=== PATIENT | female | born 1960 | race African-American/Black ===

== ENCOUNTER 2019-08-24 14:09 | Emergency (ER) | payer MEDICAID, OTHER ==
[~2019-08-24] VITALS: Ht 162.6 cm; Wt 60.0 kg
[2019-08-24] MEDS ORDERED: ARIPIPRAZOLE 10MG TABLET PO ONE (14:45)
[2019-08-24] MEDS ORDERED: HYDROCODONE/ACETAMINOPHEN 5/325MG TABLET PO ONE (14:45)
[2019-08-24 14:51] VITALS: BP 131/68
[2019-08-24] MEDS ORDERED: ARIPIPRAZOLE 5MG TABLET PO NR (15:00)
== END 2019-08-24 15:33 | disposition home or self-care (01) ==
LOC: ER 14:22
DX: M79.662 Pain in left lower leg (principal); Z59.0 Homelessness
CPT/HCPCS: 99283

== ENCOUNTER 2019-08-25 06:37 | Emergency (ER) | payer MEDICAID, OTHER ==
[~2019-08-25] VITALS: Ht 165.1 cm; Wt 71.0 kg
[2019-08-25 07:30] LABS: CLARITY URINE CLEAR (CLEAR); COLOR URINE YELLOW (YELLOW); KETONES URINE NEGATIVE (NEGATIVE); LEUKOCYTE ESTERASE URINE TRACE (NEGATIVE); NITRITE URINE NEGATIVE (NEGATIVE); OCCULT BLOOD URINE NEGATIVE (NEGATIVE); PH URINE 5.5 (4.5-8.0); PROTEIN URINE NEGATIVE (NEGATIVE); SPECIFIC GRAVITY URINE 1.006 (1.005-1.030)
[2019-08-25] MEDS ORDERED: IBUPROFEN 400MG TABLET PO ONE (07:45)
[2019-08-25] MEDS ORDERED: KETOROLAC 60MG/2ML VIAL IM ONE (07:45)
[2019-08-25 07:52] VITALS: BP 124/92
== END 2019-08-25 18:19 | disposition home or self-care (01) ==
LOC: ER 06:37
DX: G89.29 Other chronic pain (principal); M54.5 Low back pain; Z88.0 Allergy status to penicillin
CPT/HCPCS: 81003; 96372; 99283; J1885

== ENCOUNTER 2019-08-25 19:13 | Emergency (ER) | payer MEDICAID, OTHER ==
[~2019-08-25] VITALS: Ht 170.2 cm; Wt 76.0 kg
[2019-08-25] MEDS ORDERED: HYDROCODONE/ACETAMINOPHEN 5/325MG TABLET PO ONE (20:30)
[2019-08-25 21:35] VITALS: BP 119/89
== END 2019-08-25 21:55 | disposition home or self-care (01) ==
LOC: ER 19:13
DX: G89.29 Other chronic pain (principal); M79.662 Pain in left lower leg; F31.9 Bipolar disorder, unspecified; D64.9 Anemia, unspecified; F17.200 Nicotine dependence, unspecified, uncomplicated; Z88.0 Allergy status to penicillin
CPT/HCPCS: 99283

== ENCOUNTER 2019-08-26 02:11 | Emergency (ER) | payer MEDICAID, OTHER ==
[~2019-08-26] VITALS: Ht 167.6 cm; Wt 73.0 kg
[2019-08-26] MEDS ORDERED: ARIPIPRAZOLE 10MG TABLET PO ONE (03:45)
[2019-08-26] MEDS ORDERED: ACETAMINOPHEN 500MG TABLET PO ONE (12:30)
[2019-08-27] MEDS ORDERED: ACETAMINOPHEN 500MG TABLET PO ONE (05:30)
[2019-08-27] MEDS ORDERED: ACETAMINOPHEN 325MG TABLET PO STA (09:43)
[2019-08-27] MEDS ORDERED: ARIPIPRAZOLE 5MG TABLET PO ONE (16:30)
[2019-08-27] MEDS ORDERED: ARIPIPRAZOLE 2MG TABLET PO NR (16:45)
[2019-08-27 17:06] VITALS: BP 131/91
== END 2019-08-27 17:01 | disposition home or self-care (01) ==
LOC: ER 02:11
DX: F31.9 Bipolar disorder, unspecified (principal); F17.200 Nicotine dependence, unspecified, uncomplicated; Z59.0 Homelessness; Z88.0 Allergy status to penicillin
CPT/HCPCS: 99284

== ENCOUNTER 2019-10-06 01:00 | Emergency (ER) | payer MEDICAID, OTHER ==
[~2019-10-06] VITALS: Ht 175.3 cm; Wt 71.0 kg
[2019-10-06] MEDS ORDERED: PROCHLORPERAZINE MALEATE 10MG TABLET PO ONE (01:30)
[2019-10-06 01:42] LABS: BASOPHILS % 0.7 % (0.0-2.0); EOSINOPHILS % 0.7 % (0.0-5.0); HEMATOCRIT. 41.4 % (36.0-48.0); HEMOGLOBIN. 14.2 g/dL (12.0-16.0); LYMPHOCYTES % 29.9 % (20.0-50.0); MEAN CORPUSCULAR HEMOGLOBIN 30.4 pg (28.0-32.0); MEAN CORPUSCULAR VOLUME 88.4 fL (81.0-99.0); MEAN PLATELET VOLUME 7.7 fl (7.4-10.4); MONOCYTES % 8.3 % (2.0-8.0); NEUTROPHILS % 60.4 % (40.0-76.0); PLATELET 417 x1000/uL (130-400); RED BLOOD CELL COUNT 4.68 mill/uL (4.2-5.4); RED CELL DISTRIBUTION WIDTH 13.1 % (11.6-14.6)
[2019-10-06 01:52] LABS: CHLORIDE 107 mEq/L (98-107)
[2019-10-06] MEDS ORDERED: POTASSIUM CHLORIDE 20MEQ TABLET SR PO ONE ×2 (02:00)
[2019-10-06] MEDS ORDERED: KETOROLAC 30MG/ML VIAL IV ONE (03:00)
[2019-10-06 04:30] VITALS: BP 140/77
== END 2019-10-06 06:32 | disposition home or self-care (01) ==
LOC: ER 01:00
DX: R51 Headache (principal); E87.6 Hypokalemia; M25.562 Pain in left knee; G89.29 Other chronic pain; I10 Essential (primary) hypertension; F31.9 Bipolar disorder, unspecified; R56.9 Unspecified convulsions; Z88.0 Allergy status to penicillin
CPT/HCPCS: 36415; 70450; 71045; 73562; 80053; 83880; 84484; 85025; 93005; 96374; 99284; J1885; Q0164; Z7610